=== PATIENT | male | born 1970 | race Two or more races ===

== ENCOUNTER 2021-03-04 19:38 | Inpatient (IN) | payer OTHER ==
[~2021-03-04] VITALS: Ht 165.1 cm; Wt 70.2 kg
[2021-03-04] MEDS ORDERED: ACETAMINOPHEN 325 MG TAB PO ONE (20:00)
[2021-03-04] MEDS ORDERED: SODIUM CHLORIDE 0.9% 1,000 ML IV ONE (20:00)
[2021-03-04 20:28] LABS: Basophils # (auto) 0 10 ^3/uL (0-0.2); Basophils % (auto) 0.5 % (0.0-2.0); Eosinophils # (auto) 0 10 ^3/uL (0-0.8); Eosinophils % (auto) 0.5 % (0.0-7.0); Hematocrit 43.2 % (41.0-53.0); Hemoglobin 14.4 g/dL (13.5-17.5); Lymphocytes # (auto) 0.9 10 ^3/uL (0.4-5.4); Lymphocytes % (auto) 10.4 % (10.0-50.0); Mean Corpuscular Hemoglobin 29.2 pg (28.0-32.0); Mean Corpuscular Hgb Conc. 33.3 g/dL (32.0-36.0); Mean Corpuscular Volume 87.8 fL (80.0-100.0); Monocytes # (auto) 0.5 10 ^3/uL (0-1.3); Monocytes % (auto) 6.6 % (0.0-12.0); Neutrophils # (auto) 6.9 10 ^3/uL (1.6-8.6); Red Blood Cells 4.91 10^6/uL (4.5-5.90); Red Cell Distribution Width 16.5 % (11.8-14.3); White Blood Cell 8.4 10^3/uL (4.4-10.8)
[2021-03-04 20:49] LABS: Albumin 3.1 g/dL (3.4-5.0); Calcium 8.9 mg/dL (8.5-10.1); Potassium 3.7 mmol/L (3.5-5.1)
[2021-03-04 20:53] LABS: BUN/Creatinine Ratio 14.3; Bilirubin, Total 0.2 mg/dL (0.2-1.0); Total Protein 8.3 g/dL (6.4-8.2)
[2021-03-04 20:59] LABS: Urine Bacteria FEW /hpf (None Seen); Urine Blood Negative /uL (Negative); Urine Hyaline Cast FEW /lpf (0 - 2); Urine Specific Gravity 1.015 (1.001-1.035); Urine WBC 13 /hpf (0 - 3)
[2021-03-04] MEDS ORDERED: cefTRIAXone 1GM/50ML D5W 50 ML IV ONE (21:30)
[2021-03-04] MEDS ORDERED: SULF400T11 PO (22:51)
[2021-03-04] MEDS ORDERED: DARU1TAB3 PO (22:51)
[2021-03-05] MEDS ORDERED: ONDANSETRON HCL 4 MG/2 ML VIAL IV PRN (00:15)
[2021-03-05] MEDS ORDERED: DOCUSATE SOD 100 MG CAP PO PRN (00:15)
[2021-03-05] MEDS ORDERED: NITROGLYCERIN 0.4 MG SL TAB SL PRN (00:15)
[2021-03-05] MEDS ORDERED: MORPHINE SULFATE INJECTION 2 MG/ML SYRG IV PRN (00:15)
[2021-03-05] MEDS ORDERED: ACETAMINOPHEN 325 MG TAB PO PRN (00:15)
[2021-03-05 06:18] LABS: Basophils # (auto) 0.1 10 ^3/uL (0-0.2); Basophils % (auto) 0.8 % (0.0-2.0); Eosinophils # (auto) 0 10 ^3/uL (0-0.8); Eosinophils % (auto) 0.3 % (0.0-7.0); Hematocrit 41.7 % (41.0-53.0); Hemoglobin 14.6 g/dL (13.5-17.5); Lymphocytes # (auto) 0.8 10 ^3/uL (0.4-5.4); Mean Corpuscular Hemoglobin 30.1 pg (28.0-32.0); Mean Corpuscular Hgb Conc. 34.9 g/dL (32.0-36.0); Mean Corpuscular Volume 86.2 fL (80.0-100.0); Monocytes # (auto) 0.5 10 ^3/uL (0-1.3); Monocytes % (auto) 6.3 % (0.0-12.0); Neutrophils # (auto) 6.7 10 ^3/uL (1.6-8.6); Neutrophils % (auto) 82.6 % (37.0-80.0); Nucleated Red Blood Cells % 0.2 %; Red Blood Cells 4.84 10^6/uL (4.5-5.90); Red Cell Distribution Width 17.1 % (11.8-14.3); White Blood Cell 8.1 10^3/uL (4.4-10.8)
[2021-03-05 07:11] LABS: Albumin 2.8 g/dL (3.4-5.0)
[2021-03-05 07:13] LABS: BUN/Creatinine Ratio 14.3
[2021-03-05 07:23] LABS: Bilirubin, Total 0.4 mg/dL (0.2-1.0); Total Protein 8.2 g/dL (6.4-8.2)
[2021-03-05] MEDS: SULFAMETH-TRIMETH 80/16MG-ML 10 ML in D5W 5% 250 ML IV SCH ×2 (07:41→15:23)
[2021-03-05] MEDS ORDERED: cefTRIAXone 1GM/50ML D5W 50 ML IV SCH (09:00)
[2021-03-05 09:45] VITALS: BP 115/65
[2021-03-05 13:00] VITALS: BP 110/65
[2021-03-05] MEDS: FAMOTIDINE (10MG/ML) 2ML VL IV SCH (13:00)
[2021-03-05] MEDS: ZINC SULFATE 220mg CAP or TAB PO SCH (13:00)
[2021-03-05] MEDS: MULTIPLE VITAMIN TAB PO SCH (13:01)
[2021-03-05] MEDS: ASCORBIC ACID 500 MG TAB PO SCH ×2 (13:01→23:00)
[2021-03-05] MEDS: ENOXAPARIN SOD 40 MG/0.4 ML SYRINGE SC SCH (13:01)
[2021-03-05] MEDS: [UNRECOGNIZED DRUG - OTHER] PO SCH (13:29)
[2021-03-05] MEDS: DARUNAVIR PO SCH (13:29)
[2021-03-05] MEDS: COBICISTAT PO SCH (13:29)
[2021-03-05] MEDS: EMTRICITABINE PO SCH (13:29)
[2021-03-05] MEDS: HYDROcodone-ACET 5/325MG TAB PO PRN (15:24)
[2021-03-05 17:00] VITALS: BP 108/61
[2021-03-05] MEDS ORDERED: ACYCLOVIR 10MG/KG Q8HR PER RX 0 ML IV SCH (19:45)
[2021-03-05] MEDS ORDERED: VANCOMYCIN PER PHARMACY 0 MG IV SCH (19:45)
[2021-03-05] MEDS ORDERED: VANCOMYCIN 1GM/250ML 250 ML IV ONE (20:15)
[2021-03-05 22:00] VITALS: BP 106/72
[2021-03-05] MEDS ORDERED: D5W 5% IV SCH (22:00)
[2021-03-05] MEDS ORDERED: ACYCLOVIR SOD IV SCH (22:00)
[2021-03-05] MEDS: CEFTRIAXONE SODIUM 2 GM in D5W 5% 50 ML IV SCH (23:00)
[2021-03-05] MEDS: VANCOMYCIN 750mg/250ml 250 ML IV SCH (23:30)
[2021-03-06] MEDS: D5W 5% IV SCH ×3 (00:30→17:26)
[2021-03-06] MEDS: ACYCLOVIR SOD IV SCH ×3 (00:30→17:26)
[2021-03-06 05:00] VITALS: BP 94/57
[2021-03-06 05:35] LABS: Basophils # (auto) 0 10 ^3/uL (0-0.2); Basophils % (auto) 0.8 % (0.0-2.0); Eosinophils # (auto) 0 10 ^3/uL (0-0.8); Eosinophils % (auto) 0.4 % (0.0-7.0); Hematocrit 41.2 % (41.0-53.0); Lymphocytes # (auto) 0.6 10 ^3/uL (0.4-5.4); Lymphocytes % (auto) 11.2 % (10.0-50.0); Mean Corpuscular Hemoglobin 29.5 pg (28.0-32.0); Mean Corpuscular Hgb Conc. 33.9 g/dL (32.0-36.0); Mean Corpuscular Volume 87.1 fL (80.0-100.0); Monocytes # (auto) 0.3 10 ^3/uL (0-1.3); Monocytes % (auto) 5.4 % (0.0-12.0); Neutrophils # (auto) 4.7 10 ^3/uL (1.6-8.6); Neutrophils % (auto) 82.2 % (37.0-80.0); Nucleated Red Blood Cells % 0.3 %; Red Blood Cells 4.73 10^6/uL (4.5-5.90); Red Cell Distribution Width 16.8 % (11.8-14.3); White Blood Cell 5.8 10^3/uL (4.4-10.8)
[2021-03-06 05:59] LABS: Potassium 3.7 mmol/L (3.5-5.1)
[2021-03-06 06:07] LABS: Albumin 2.9 g/dL (3.4-5.0); BUN/Creatinine Ratio 17.6; Bilirubin, Total 0.3 mg/dL (0.2-1.0); Calcium 8.8 mg/dL (8.5-10.1); Total Protein 8.3 g/dL (6.4-8.2)
[2021-03-06] MEDS: VANCOMYCIN 750mg/250ml 250 ML IV SCH ×3 (06:59→23:00)
[2021-03-06 08:00] VITALS: BP 102/63
[2021-03-06 09:00] VITALS: BP 102/63
[2021-03-06] MEDS: COBICISTAT PO SCH (09:30)
[2021-03-06] MEDS: DARUNAVIR PO SCH (09:30)
[2021-03-06] MEDS: EMTRICITABINE PO SCH (09:30)
[2021-03-06] MEDS: [UNRECOGNIZED DRUG - OTHER] PO SCH (09:30)
[2021-03-06] MEDS: MULTIPLE VITAMIN TAB PO SCH (09:32)
[2021-03-06] MEDS: ASCORBIC ACID 500 MG TAB PO SCH ×2 (09:32→21:52)
[2021-03-06] MEDS: FAMOTIDINE (10MG/ML) 2ML VL IV SCH (09:32)
[2021-03-06] MEDS: ZINC SULFATE 220mg CAP or TAB PO SCH (09:32)
[2021-03-06] MEDS: ENOXAPARIN SOD 40 MG/0.4 ML SYRINGE SC SCH (09:33)
[2021-03-06] MEDS ORDERED: GADOTERATE MEG 10 MMOL/20ml INJ (0.5MMOL/ml) IV ONE (09:45)
[2021-03-06] MEDS: CEFTRIAXONE SODIUM 2 GM in D5W 5% 50 ML IV SCH ×2 (11:20→21:00)
[2021-03-06 13:00] VITALS: BP 106/62
[2021-03-06 17:00] VITALS: BP 104/69
[2021-03-06 22:00] VITALS: BP 126/83
[2021-03-07 05:00] VITALS: BP 108/63
[2021-03-07] MEDS: ACYCLOVIR SOD IV SCH ×4 (08:00→16:48)
[2021-03-07] MEDS: D5W 5% IV SCH ×4 (08:00→16:48)
[2021-03-07 08:15] VITALS: BP 119/78
[2021-03-07] MEDS: CEFTRIAXONE SODIUM 2 GM in D5W 5% 50 ML IV SCH ×2 (08:52→21:00)
[2021-03-07 09:00] VITALS: BP 119/78
[2021-03-07 09:04] LABS: Albumin 3.1 g/dL (3.4-5.0); Potassium 4.3 mmol/L (3.5-5.1)
[2021-03-07 09:08] LABS: Basophils # (auto) 0 10 ^3/uL (0-0.2); Basophils % (auto) 0.8 % (0.0-2.0); Eosinophils # (auto) 0.1 10 ^3/uL (0-0.8); Eosinophils % (auto) 1.7 % (0.0-7.0); Hematocrit 43.3 % (41.0-53.0); Hemoglobin 14.6 g/dL (13.5-17.5); Lymphocytes # (auto) 0.7 10 ^3/uL (0.4-5.4); Mean Corpuscular Hemoglobin 29.4 pg (28.0-32.0); Mean Corpuscular Hgb Conc. 33.8 g/dL (32.0-36.0); Mean Corpuscular Volume 86.9 fL (80.0-100.0); Monocytes # (auto) 0.3 10 ^3/uL (0-1.3); Monocytes % (auto) 7.9 % (0.0-12.0); Neutrophils # (auto) 2.8 10 ^3/uL (1.6-8.6); Neutrophils % (auto) 71.6 % (37.0-80.0); Nucleated Red Blood Cells % 0.2 %; Red Blood Cells 4.98 10^6/uL (4.5-5.90); Red Cell Distribution Width 16.8 % (11.8-14.3); White Blood Cell 3.9 10^3/uL (4.4-10.8)
[2021-03-07 09:11] LABS: BUN/Creatinine Ratio 25.2; Bilirubin, Total 0.2 mg/dL (0.2-1.0)
[2021-03-07] MEDS: COBICISTAT PO SCH (10:00)
[2021-03-07] MEDS: EMTRICITABINE PO SCH (10:00)
[2021-03-07] MEDS: FAMOTIDINE (10MG/ML) 2ML VL IV SCH (10:00)
[2021-03-07] MEDS: [UNRECOGNIZED DRUG - OTHER] PO SCH (10:00)
[2021-03-07] MEDS: DARUNAVIR PO SCH (10:00)
[2021-03-07] MEDS: MULTIPLE VITAMIN TAB PO SCH (11:19)
[2021-03-07] MEDS: ENOXAPARIN SOD 40 MG/0.4 ML SYRINGE SC SCH (11:19)
[2021-03-07] MEDS: ZINC SULFATE 220mg CAP or TAB PO SCH (11:19)
[2021-03-07] MEDS: ASCORBIC ACID 500 MG TAB PO SCH ×2 (11:19→21:39)
[2021-03-07 13:00] VITALS: BP 105/74
[2021-03-07] MEDS: VANCOMYCIN 750mg/250ml 250 ML IV SCH ×2 (14:49)
[2021-03-07 17:00] VITALS: BP 111/78
[2021-03-07 22:00] VITALS: BP 129/74
[2021-03-07] MEDS ORDERED: cefTRIAXone 2 GM VL IV ONE (23:05)
[2021-03-08] VITALS (9 sets, daily range): BP systolic 110–146; BP diastolic 71–92
[2021-03-08] MEDS: ACYCLOVIR SOD IV SCH ×3 (00:49→16:33)
[2021-03-08] MEDS: D5W 5% IV SCH ×3 (00:49→16:33)
[2021-03-08] MEDS: VANCOMYCIN 750mg/250ml 250 ML IV SCH ×2 (02:00→14:27)
[2021-03-08] MEDS: EMTRICITABINE PO SCH (10:00)
[2021-03-08] MEDS: COBICISTAT PO SCH (10:00)
[2021-03-08] MEDS: [UNRECOGNIZED DRUG - OTHER] PO SCH (10:00)
[2021-03-08] MEDS: DARUNAVIR PO SCH (10:00)
[2021-03-08] MEDS: FAMOTIDINE (10MG/ML) 2ML VL IV SCH (10:01)
[2021-03-08] MEDS: ZINC SULFATE 220mg CAP or TAB PO SCH (10:01)
[2021-03-08] MEDS: ENOXAPARIN SOD 40 MG/0.4 ML SYRINGE SC SCH (10:02)
[2021-03-08] MEDS: MULTIPLE VITAMIN TAB PO SCH (10:02)
[2021-03-08] MEDS: ASCORBIC ACID 500 MG TAB PO SCH ×2 (10:02→20:48)
[2021-03-08 10:26] LABS: Basophils # (auto) 0 10 ^3/uL (0-0.2); Basophils % (auto) 1.7 % (0.0-2.0); Eosinophils # (auto) 0.1 10 ^3/uL (0-0.8); Eosinophils % (auto) 2.9 % (0.0-7.0); Hematocrit 44.1 % (41.0-53.0); Hemoglobin 14.7 g/dL (13.5-17.5); Lymphocytes # (auto) 0.6 10 ^3/uL (0.4-5.4); Lymphocytes % (auto) 24.4 % (10.0-50.0); Mean Corpuscular Hemoglobin 29.2 pg (28.0-32.0); Mean Corpuscular Hgb Conc. 33.3 g/dL (32.0-36.0); Mean Corpuscular Volume 87.8 fL (80.0-100.0); Monocytes # (auto) 0.3 10 ^3/uL (0-1.3); Monocytes % (auto) 11.3 % (0.0-12.0); Neutrophils # (auto) 1.5 10 ^3/uL (1.6-8.6); Neutrophils % (auto) 59.7 % (37.0-80.0); Nucleated Red Blood Cells % 0.6 %; Red Blood Cells 5.02 10^6/uL (4.5-5.90); Red Cell Distribution Width 16.5 % (11.8-14.3); White Blood Cell 2.5 10^3/uL (4.4-10.8)
[2021-03-08 10:40] LABS: INR 0.94 (0.9-1.15); Partial Thromboplastin Time 25.7 sec (23.6-33.0)
[2021-03-08 10:46] LABS: Albumin 2.9 g/dL (3.4-5.0); Anion Gap 5 (5-15); Blood Urea Nitrogen 21 mg/dL (7-18); Calcium 8.9 mg/dL (8.5-10.1); Carbon Dioxide 26 mmol/L (21-32); Chloride 105 mmol/L (98-107); Glucose 120 mg/dL (74-106); Magnesium 2.4 mg/dL (1.6-2.6); Potassium 4.3 mmol/L (3.5-5.1); Sodium 136 mmol/L (136-145)
[2021-03-08 10:50] LABS: Alanine Aminotransferase 28 U/L (16-61); Alkaline Phosphatase 82 U/L (45-117); Aspartate Aminotransferase 28 U/L (15-37); BUN/Creatinine Ratio 23.9; Bilirubin, Total 0.2 mg/dL (0.2-1.0); GFR African American 117 mL/min; GFR Non-African American 97 mL/min; Phosphorus 2.6 mg/dL (2.5-4.90); Total Protein 8.5 g/dL (6.4-8.2)
[2021-03-08] MEDS ORDERED: LORazepam 2MG/ML-1ML VIAL IV ONE (11:00)
[2021-03-08] MEDS ORDERED: fentaNYL CITRATE 100 MCG/2 ML VL IV ONE (11:30)
[2021-03-08] MEDS ORDERED: MIDAZOLAM HCL 2MG/2ML 2ml VIAL (1mg/ml) IV ONE (11:30)
[2021-03-08] MEDS: CEFTRIAXONE SODIUM 2 GM in D5W 5% 50 ML IV SCH ×2 (12:10→20:46)
[2021-03-08 12:12] LABS: Hepatitis A Ab IgM Negative; Hepatitis B Surface Antibody Negative; Hepatitis B Surface Antigen Negative (Negative); Hepatitis C Antibody Negative (Negative)
[2021-03-08] MEDS ORDERED: LIDOCAINE 2%HCL (LOCAL ANESTH.) INJ 20ML MDV ONE (12:14)
[2021-03-08] MEDS ORDERED: diphenhdrAMINE HCL 50 MG/1 ML VL ONE (12:59)
[2021-03-08 13:51] LABS: Urine WBC None Seen /hpf (0 - 3)
[2021-03-08 14:01] LABS: Protein, CSF 59.4 mg/dL (15-45)
[2021-03-08 14:15] LABS: CSF White Blood Cells 1 CUMM (0-5)
[2021-03-08 14:40] LABS: Hepatitis B Core Total AB Positive
[2021-03-08 14:59] LABS: Urine Bacteria NONE SEEN /hpf (None Seen); Urine Blood Negative /uL (Negative); Urine Specific Gravity 1.012 (1.001-1.035); Urine Sperm PRESENT /hpf (None Seen)
[2021-03-09] MEDS: ACYCLOVIR SOD IV SCH ×4 (00:07→23:40)
[2021-03-09] MEDS: D5W 5% IV SCH ×4 (00:07→23:40)
[2021-03-09] MEDS: VANCOMYCIN 750mg/250ml 250 ML IV SCH (02:00)
[2021-03-09 05:00] VITALS: BP 91/61
[2021-03-09 05:46] LABS: Basophils # (auto) 0.1 10 ^3/uL (0-0.2); Basophils % (auto) 1.6 % (0.0-2.0); Eosinophils # (auto) 0.1 10 ^3/uL (0-0.8); Eosinophils % (auto) 2.9 % (0.0-7.0); Hematocrit 46.9 % (41.0-53.0); Hemoglobin 15.9 g/dL (13.5-17.5); Lymphocytes # (auto) 0.9 10 ^3/uL (0.4-5.4); Lymphocytes % (auto) 24.9 % (10.0-50.0); Mean Corpuscular Hemoglobin 30.1 pg (28.0-32.0); Mean Corpuscular Hgb Conc. 33.9 g/dL (32.0-36.0); Mean Corpuscular Volume 88.9 fL (80.0-100.0); Monocytes # (auto) 0.5 10 ^3/uL (0-1.3); Monocytes % (auto) 13.5 % (0.0-12.0); Neutrophils % (auto) 57.1 % (37.0-80.0); Nucleated Red Blood Cells % 0.7 %; Red Blood Cells 5.28 10^6/uL (4.5-5.90); Red Cell Distribution Width 16.2 % (11.8-14.3); White Blood Cell 3.4 10^3/uL (4.4-10.8)
[2021-03-09 06:04] LABS: INR 0.93 (0.9-1.15); Partial Thromboplastin Time 25.2 sec (23.6-33.0)
[2021-03-09 06:06] LABS: RPR Non Reactive (Non Reactive)
[2021-03-09 06:12] LABS: Potassium 4.2 mmol/L (3.5-5.1)
[2021-03-09 06:25] LABS: BUN/Creatinine Ratio 31.8; Bilirubin, Total 0.2 mg/dL (0.2-1.0); Calcium 8.9 mg/dL (8.5-10.1); Magnesium 2.6 mg/dL (1.6-2.6); Phosphorus 3.9 mg/dL (2.5-4.90); Total Protein 8.6 g/dL (6.4-8.2)
[2021-03-09 08:00] VITALS: BP 91/61
[2021-03-09 09:00] VITALS: BP 107/80
[2021-03-09] MEDS: [UNRECOGNIZED DRUG - OTHER] PO SCH (10:00)
[2021-03-09] MEDS: EMTRICITABINE PO SCH (10:00)
[2021-03-09] MEDS: COBICISTAT PO SCH (10:00)
[2021-03-09] MEDS: DARUNAVIR PO SCH (10:00)
[2021-03-09] MEDS: ENOXAPARIN SOD 40 MG/0.4 ML SYRINGE SC SCH (10:00)
[2021-03-09] MEDS: ZINC SULFATE 220mg CAP or TAB PO SCH (10:40)
[2021-03-09] MEDS: FAMOTIDINE (10MG/ML) 2ML VL IV SCH (10:40)
[2021-03-09] MEDS: MULTIPLE VITAMIN TAB PO SCH (10:41)
[2021-03-09] MEDS: ASCORBIC ACID 500 MG TAB PO SCH ×2 (10:41→21:17)
[2021-03-09] MEDS: CEFTRIAXONE SODIUM 2 GM in D5W 5% 50 ML IV SCH (11:45)
[2021-03-09 13:00] VITALS: BP 99/68
[2021-03-09] MEDS ORDERED: VANCOMYCIN 1GM/250ML 250 ML IV SCH (14:00)
[2021-03-09 17:00] VITALS: BP 136/83
[2021-03-09] MEDS: HYDROcodone-ACET 5/325MG TAB PO PRN ×2 (21:26→21:27)
[2021-03-09 22:00] VITALS: BP 123/79
[2021-03-10 05:00] VITALS: BP 107/70
[2021-03-10] MEDS: [UNRECOGNIZED DRUG - OTHER] PO SCH (08:42)
[2021-03-10] MEDS: MULTIPLE VITAMIN TAB PO SCH (08:42)
[2021-03-10] MEDS: D5W 5% IV SCH (08:42)
[2021-03-10] MEDS: EMTRICITABINE PO SCH (08:42)
[2021-03-10] MEDS: ZINC SULFATE 220mg CAP or TAB PO SCH (08:42)
[2021-03-10] MEDS: ACYCLOVIR SOD IV SCH (08:42)
[2021-03-10] MEDS: DARUNAVIR PO SCH (08:42)
[2021-03-10] MEDS: COBICISTAT PO SCH (08:42)
[2021-03-10] MEDS: ENOXAPARIN SOD 40 MG/0.4 ML SYRINGE SC SCH (08:42)
[2021-03-10] MEDS: FAMOTIDINE (10MG/ML) 2ML VL IV SCH (08:42)
[2021-03-10] MEDS: ASCORBIC ACID 500 MG TAB PO SCH ×2 (08:42→21:55)
[2021-03-10 09:00] VITALS: BP 112/73
[2021-03-10 13:00] VITALS: BP 111/61
[2021-03-10 17:00] VITALS: BP 131/95
[2021-03-10 22:00] VITALS: BP 129/65
[2021-03-11 05:00] VITALS: BP 124/70
[2021-03-11 09:00] VITALS: BP 117/66
[2021-03-11] MEDS: COBICISTAT PO SCH (09:23)
[2021-03-11] MEDS: ZINC SULFATE 220mg CAP or TAB PO SCH (09:23)
[2021-03-11] MEDS: FAMOTIDINE (10MG/ML) 2ML VL IV SCH (09:23)
[2021-03-11] MEDS: [UNRECOGNIZED DRUG - OTHER] PO SCH (09:23)
[2021-03-11] MEDS: EMTRICITABINE PO SCH (09:23)
[2021-03-11] MEDS: DARUNAVIR PO SCH (09:23)
[2021-03-11] MEDS: MULTIPLE VITAMIN TAB PO SCH (09:24)
[2021-03-11] MEDS: ENOXAPARIN SOD 40 MG/0.4 ML SYRINGE SC SCH (09:24)
[2021-03-11] MEDS: ASCORBIC ACID 500 MG TAB PO SCH (09:24)
== END 2021-03-11 12:48 | disposition home or self-care (01) | DRG 463 ==
LOC: EDBD 19:38 → ER 19:39 → OVERFLOW 03-05 00:04 → WEST WING 03-05 10:15
PROVIDERS: ADMIT Nurse Practitioner Family; ATTEND Internal Medicine
PROC: 009U3ZX Drainage of Spinal Canal, Percutaneous Approach, Diagnostic (ICD-10-PCS; principal; 2021-03-08)
PROC: B01BZZZ Fluoroscopy of Spinal Cord (ICD-10-PCS; 2021-03-08)
DX: N30.00 Acute cystitis without hematuria (principal); B20 Human immunodeficiency virus [HIV] disease; C80.1 Malignant (primary) neoplasm, unspecified; J44.9 Chronic obstructive pulmonary disease, unspecified; H54.8 Legal blindness, as defined in USA; F15.90 Other stimulant use, unspecified, uncomplicated; F17.210 Nicotine dependence, cigarettes, uncomplicated; H10.9 Unspecified conjunctivitis; Z20.822 Contact with and (suspected) exposure to COVID-19; Z80.9 Family history of malignant neoplasm, unspecified; Z83.3 Family history of diabetes mellitus; Z72.89 Other problems related to lifestyle; Z91.19 Patient's noncompliance with other medical treatment and regimen
CPT/HCPCS: 36415; 62272; 70553; 71045; 80053; 80202; 81001; 82565; 82945; 83735; 83880; 84100; 84157; 84443; 84484; 85025; 85610; 85730; 86592; 86704; 86706; 86709; 86777; 86778; 86803; 87040; 87070; 87086; 87205; 87340; 87426; 87529; 87536; 87899; 88108; 89051; 93005; 93306; 96365; 96375; 97163; G0378; J0696; J2250; J3490; J7060

== ENCOUNTER → 2021-09-15 | Outpatient (CLI) | payer MEDICAID ==
[~2021-09-15] MED LIST: ALBUTEROL SULF 2.5 MG/0.5ML(0.5%) NEB SOLN ONE; DARU1TAB3 PO; SULF400T11 PO
== END | disposition home or self-care (01) ==
LOC: RT 08:19
PROVIDERS: ATTEND Internal Medicine Pulmonary Disease
DX: J44.9 Chronic obstructive pulmonary disease, unspecified (principal); F17.200 Nicotine dependence, unspecified, uncomplicated
CPT/HCPCS: 94060; 94640

== ENCOUNTER → 2022-04-12 | Outpatient (CLI) | payer MEDICAID ==
[~2022-04-12] MED LIST changes: -ALBUTEROL SULF 2.5 MG/0.5ML(0.5%) NEB SOLN ONE; +CIPR500T4 PO
[2022-04-12 13:24] LABS: Basophils # (auto) 0 10 ^3/uL (0-0.2); Basophils % (auto) 0.6 % (0.0-2.0); Eosinophils # (auto) 0.2 10 ^3/uL (0-0.8); Eosinophils % (auto) 2.1 % (0.0-7.0); Hematocrit 42.5 % (41.0-53.0); Hemoglobin 14.3 g/dL (13.5-17.5); Lymphocytes # (auto) 0.8 10 ^3/uL (0.4-5.4); Lymphocytes % (auto) 10.6 % (10.0-50.0); Mean Corpuscular Hgb Conc. 33.7 g/dL (32.0-36.0); Mean Corpuscular Volume 86.2 fL (80.0-100.0); Monocytes # (auto) 0.6 10 ^3/uL (0-1.3); Monocytes % (auto) 8.1 % (0.0-12.0); Neutrophils # (auto) 5.6 10 ^3/uL (1.6-8.6); Neutrophils % (auto) 78.6 % (37.0-80.0); Nucleated Red Blood Cells % 0.5 %; Red Blood Cells 4.92 10^6/uL (4.5-5.90); Red Cell Distribution Width 14.1 % (11.8-14.3); White Blood Cell 7.1 10^3/uL (4.4-10.8)
[2022-04-12 14:07] LABS: Prostate Specific Antigen 0.54 ng/mL (0.0-4.0)
[2022-04-12 14:12] LABS: Urine Bacteria FEW /hpf (None Seen); Urine Blood Negative /uL (Negative); Urine Specific Gravity 1.009 (1.001-1.035); Urine WBC 8 /hpf (0 - 3)
[2022-04-12 14:40] LABS: Alanine Aminotransferase 22 U/L (16-61); Alkaline Phosphatase 83 U/L (45-117); Anion Gap 6 (5-15); Aspartate Aminotransferase 31 U/L (15-37); BUN/Creatinine Ratio 15.4; Bilirubin, Total 0.5 mg/dL (0.2-1.0); Blood Urea Nitrogen 10 mg/dL (7-18); Calcium 8.9 mg/dL (8.5-10.1); Carbon Dioxide 26 mmol/L (21-32); Chloride 105 mmol/L (98-107); GFR African American 165 mL/min; GFR Non-African American 137 mL/min; Glucose 87 mg/dL (74-106); Sodium 137 mmol/L (136-145); Total Protein 8.9 g/dL (6.4-8.2)
[2022-04-12 14:41] LABS: Albumin 2.9 g/dL (3.4-5.0); Cholesterol 132 mg/dL (< 200); HDL Cholesterol 35 mg/dL (40-59); LDL Cholesterol 94 mg/dL (< 100); Triglycerides 159 mg/dL (< 150)
== END | disposition home or self-care (01) ==
LOC: LAB 11:38
DX: Z21 Asymptomatic human immunodeficiency virus [HIV] infection status (principal); E78.2 Mixed hyperlipidemia; R91.1 Solitary pulmonary nodule; C44.321 Squamous cell carcinoma of skin of nose; F15.91 Other stimulant use, unspecified, in remission; Z86.19 Personal history of other infectious and parasitic diseases
CPT/HCPCS: 36415; 80053; 80061; 81001; 82306; 82607; 83036; 84153; 84443; 86360; 86606; 86701; 86703; 86803

== ENCOUNTER 2023-01-24 18:39 | Inpatient (IN) | payer MEDICAID ==
[~2023-01-24] VITALS: Ht 167.6 cm; Wt 124.3 kg
[2023-01-24 19:41] LABS: Basophils # (auto) 0 10 ^3/uL (0-0.2); Eosinophils # (auto) 0.1 10 ^3/uL (0-0.8); Eosinophils % (auto) 1.9 % (0.0-7.0); Hematocrit 35.6 % (41.0-53.0); Hemoglobin 11.9 g/dL (13.5-17.5); Lymphocytes # (auto) 0.5 10 ^3/uL (0.4-5.4); Lymphocytes % (auto) 14.5 % (10.0-50.0); Mean Corpuscular Hemoglobin 27.1 pg (28.0-32.0); Mean Corpuscular Hgb Conc. 33.4 g/dL (32.0-36.0); Mean Corpuscular Volume 81.3 fL (80.0-100.0); Monocytes # (auto) 0.2 10 ^3/uL (0-1.3); Monocytes % (auto) 6.6 % (0.0-12.0); Neutrophils # (auto) 2.5 10 ^3/uL (1.6-8.6); Nucleated Red Blood Cells % 0.1 %; Red Blood Cells 4.38 10^6/uL (4.5-5.90); Red Cell Distribution Width 16.1 % (11.8-14.3); White Blood Cell 3.2 10^3/uL (4.4-10.8)
[2023-01-24 20:01] LABS: Alanine Aminotransferase 31 U/L (7-40); Albumin 2.8 g/dL (3.2-4.8); Alkaline Phosphatase 76 U/L (46-116); Anion Gap 5.9 (5-15); Aspartate Aminotransferase 81 U/L (13-40); BUN/Creatinine Ratio 18.4 (10.0-20.0); Bilirubin, Total 0.5 mg/dL (0.2-1.0); Blood Urea Nitrogen 14 mg/dL (9-23); Calcium 8.3 mg/dL (8.7-10.4); Carbon Dioxide 25.1 mmol/L (20-30); Chloride 101 mmol/L (98-107); Glucose 95 mg/dL (74-106); Potassium 4.1 mmol/L (3.5-5.1); Sodium 132 mmol/L (136-145); Total Protein 6.7 g/dL (5.7-8.2)
[2023-01-24] MEDS ORDERED: cefTRIAXone 1GM/50ML D5W 50 ML IV ONE (20:45)
[2023-01-24] MEDS ORDERED: AZITHROMYCIN 250 MG TAB PO ONE (20:45)
[2023-01-24] MEDS ORDERED: SULFAMETH-TRIMETH 80/16MG-ML 15 ML in D5W 5% 500 ML IV ONE (21:00)
[2023-01-24] MEDS ORDERED: TEMAZEPAM 15 MG CAP PO PRN (22:45)
[2023-01-24] MEDS ORDERED: ALBUTEROL SULF 2.5 MG/0.5ML(0.5%) NEB SOLN NEB PRN (22:45)
[2023-01-24] MEDS ORDERED: ONDANSETRON HCL 4 MG/2 ML VIAL IV PRN (22:45)
[2023-01-24 22:50] VITALS: BP 106/69; PULSE 93; RESP 24; TEMP 98.8; O2SAT 93
[2023-01-24 23:30] VITALS: O2SAT 98
[2023-01-24] MEDS ORDERED: SULFAMETH-TRIMETH 800-160mg/10ml (80-16MG/ML) 10 ML VIAL IV ONE (23:54)
[2023-01-25] MEDS ORDERED: SULFAMETH-TRIMETH 800-160mg/10ml (80-16MG/ML) 10 ML VIAL IV ONE (00:02)
[2023-01-25] MEDS: ACETAMINOPHEN 325 MG TAB PO PRN (00:15)
[2023-01-25 01:19] LABS: Rapid Influenza A Negative (Negative); Rapid Influenza B Negative (Negative)
[2023-01-25 01:20] LABS: COVID19 ANTIGEN SOFIA FIA NEGATIVE (NEGATIVE)
[2023-01-25 05:11] LABS: Urine Bacteria NONE SEEN /hpf (None Seen); Urine Blood Negative /uL (Negative); Urine Clarity Clear (Clear); Urine Color Yellow (Yellow); Urine Protein, UAD TRACE (Negative); Urine Specific Gravity 1.012 (1.001-1.035); Urine WBC 2 /hpf (0 - 3); Urine pH 6.5 (5.0-8.0)
[2023-01-25] MEDS ORDERED: SULFAMETH-TRIMETH 80/16MG-ML 15 ML in D5W 5% 500 ML IV ONE (06:00)
[2023-01-25] MEDS ORDERED: BACTRIM 5MG/KG Q8HR PER RX 0 ML IV SCH (06:00)
[2023-01-25 06:47] VITALS: O2SAT 95
[2023-01-25] MEDS: NYSTATIN (MOUTH-THROAT) 500,000 UNITS/5 ML SUSP MT SCH ×4 (06:50→22:35)
[2023-01-25 07:35] VITALS: O2SAT 93
[2023-01-25] MEDS: SULFAMETH TRIMETH IV SCH ×2 (09:02→16:28)
[2023-01-25] MEDS: D5W 5% IV SCH ×2 (09:02→16:28)
[2023-01-25] MEDS: cefTRIAXone 1GM/50ML D5W 50 ML IV SCH (09:02)
[2023-01-25] MEDS: predniSONE 20 MG TAB PO SCH ×2 (11:24→22:35)
[2023-01-25] MEDS: ENOXAPARIN SOD 40 MG/0.4 ML SYRINGE SC SCH (11:24)
[2023-01-25] MEDS: PANTOPRAZOLE 40 MG TAB PO SCH (11:24)
[2023-01-25] MEDS: GABAPENTIN 300 MG CAP PO SCH ×2 (11:24→22:00)
[2023-01-25 12:44] LABS: Basophils # (auto) 0 10 ^3/uL (0-0.2); Basophils % (auto) 0.8 % (0.0-2.0); Eosinophils # (auto) 0.1 10 ^3/uL (0-0.8); Eosinophils % (auto) 2.1 % (0.0-7.0); Hematocrit 38.3 % (41.0-53.0); Hemoglobin 12.6 g/dL (13.5-17.5); Lymphocytes # (auto) 0.3 10 ^3/uL (0.4-5.4); Lymphocytes % (auto) 7.4 % (10.0-50.0); Mean Corpuscular Hemoglobin 27.1 pg (28.0-32.0); Mean Corpuscular Hgb Conc. 32.8 g/dL (32.0-36.0); Mean Corpuscular Volume 82.4 fL (80.0-100.0); Monocytes # (auto) 0.2 10 ^3/uL (0-1.3); Monocytes % (auto) 6.1 % (0.0-12.0); Neutrophils # (auto) 3.2 10 ^3/uL (1.6-8.6); Neutrophils % (auto) 83.6 % (37.0-80.0); Nucleated Red Blood Cells % 0.1 %; Red Blood Cells 4.65 10^6/uL (4.5-5.90); White Blood Cell 3.8 10^3/uL (4.4-10.8)
[2023-01-25 13:13] LABS: Alanine Aminotransferase 25 U/L (7-40); Albumin 3.1 g/dL (3.2-4.8); Alkaline Phosphatase 76 U/L (46-116); Anion Gap 7.6 (5-15); Aspartate Aminotransferase 71 U/L (13-40); BUN/Creatinine Ratio 11.4 (10.0-20.0); Bilirubin, Total 0.2 mg/dL (0.2-1.0); Blood Urea Nitrogen 9 mg/dL (9-23); Calcium 8.7 mg/dL (8.5-10.1); Carbon Dioxide 24.4 mmol/L (20-30); Chloride 101 mmol/L (98-107); Glucose 74 mg/dL (74-106); Potassium 3.5 mmol/L (3.5-5.1); Sodium 133 mmol/L (136-145); Total Protein 7.4 g/dL (5.7-8.2)
[2023-01-25 14:50] VITALS: O2SAT 94
[2023-01-25 19:25] VITALS: O2SAT 94
[2023-01-25] MEDS: ATORVASTATIN 20 MG TAB PO SCH (22:00)
[2023-01-26] VITALS (7 sets, daily range): BP systolic 100–117; BP diastolic 54–80; PULSE 74–97; RESP 15–19; TEMP 97.5–98.4; O2SAT 90–100
[2023-01-26] MEDS: D5W 5% IV SCH ×3 (00:17→16:36)
[2023-01-26] MEDS: SULFAMETH TRIMETH IV SCH ×3 (00:17→16:36)
[2023-01-26] MEDS: NYSTATIN (MOUTH-THROAT) 500,000 UNITS/5 ML SUSP MT SCH ×4 (06:22→21:38)
[2023-01-26] MEDS: GABAPENTIN 300 MG CAP PO SCH ×2 (09:29→21:39)
[2023-01-26] MEDS: PANTOPRAZOLE 40 MG TAB PO SCH (09:30)
[2023-01-26] MEDS: ENOXAPARIN SOD 40 MG/0.4 ML SYRINGE SC SCH (09:30)
[2023-01-26] MEDS: predniSONE 20 MG TAB PO SCH ×2 (09:30→21:38)
[2023-01-26] MEDS: cefTRIAXone 1GM/50ML D5W 50 ML IV SCH (13:07)
[2023-01-26] MEDS: ATORVASTATIN 20 MG TAB PO SCH (21:39)
[2023-01-27] VITALS (11 sets, daily range): BP systolic 91–105; BP diastolic 62–67; PULSE 74–117; RESP 15–24; TEMP 97.5–98.7; O2SAT 90–98
[2023-01-27] MEDS: SULFAMETH TRIMETH IV SCH ×4 (00:35→23:55)
[2023-01-27] MEDS: D5W 5% IV SCH ×4 (00:35→23:55)
[2023-01-27] MEDS: NYSTATIN (MOUTH-THROAT) 500,000 UNITS/5 ML SUSP MT SCH ×4 (06:00→21:50)
[2023-01-27] MEDS: PANTOPRAZOLE 40 MG TAB PO SCH (10:00)
[2023-01-27] MEDS: predniSONE 20 MG TAB PO SCH ×2 (10:00→21:50)
[2023-01-27] MEDS: GABAPENTIN 300 MG CAP PO SCH ×2 (10:00→22:00)
[2023-01-27] MEDS ORDERED: LIDOCAINE 2%HCL (LOCAL ANESTH.) INJ 20ML MDV ONE (10:19)
[2023-01-27] MEDS ORDERED: GLYCOPYRROLATE 0.2 MG/ML 1ML VIAL ONE ×2 (10:20→11:43)
[2023-01-27] MEDS ORDERED: EPINEPHrine HCL 1 MG/1 ML AMP ONE (10:20)
[2023-01-27] MEDS: LIDOCAINE 2% JELLY 11ml (GLYDO) ONE ×2 (10:21→11:59)
[2023-01-27] MEDS ORDERED: fentaNYL CITRATE 100 MCG/2 ML VL ONE (11:38)
[2023-01-27] MEDS ORDERED: MIDAZOLAM HCL 2MG/2ML 2ml VIAL (1mg/ml) ONE (11:38)
[2023-01-27] MEDS ORDERED: ONDANSETRON HCL 4 MG/2 ML VIAL ONE (11:43)
[2023-01-27] MEDS ORDERED: PROPOFOL 10 MG/ML 20 ML IV ONE (11:43)
[2023-01-27] MEDS ORDERED: LIDOCAINE 2% (LOCAL ANESTH.) PF 5ml SDV ONE (11:43)
[2023-01-27] MEDS ORDERED: IPRATROPIUM BROM 0.5 MG/2.5ML INH SOL NEB ONE (12:45)
[2023-01-27] MEDS ORDERED: HYDROmorphone HCL 2 MG/ML VL/or syr IV PRN (12:45)
[2023-01-27] MEDS ORDERED: ALBUTEROL SULF 2.5 MG/0.5ML(0.5%) NEB SOLN NEB ONE (12:45)
[2023-01-27] MEDS: cefTRIAXone 1GM/50ML D5W 50 ML IV SCH (15:48)
[2023-01-27] MEDS: ATORVASTATIN 20 MG TAB PO SCH (21:49)
[2023-01-27] MEDS: ACETAMINOPHEN 325 MG TAB PO PRN (21:50)
[2023-01-27 23:24] LABS: Basophils # (auto) 0 10 ^3/uL (0-0.2); Basophils % (auto) 0.2 % (0.0-2.0); Eosinophils # (auto) 0 10 ^3/uL (0-0.8); Eosinophils % (auto) 0.3 % (0.0-7.0); Hematocrit 34.7 % (41.0-53.0); Hemoglobin 11.4 g/dL (13.5-17.5); Lymphocytes # (auto) 0.3 10 ^3/uL (0.4-5.4); Lymphocytes % (auto) 5.5 % (10.0-50.0); Mean Corpuscular Hemoglobin 27.5 pg (28.0-32.0); Mean Corpuscular Hgb Conc. 32.8 g/dL (32.0-36.0); Mean Corpuscular Volume 83.6 fL (80.0-100.0); Monocytes # (auto) 0.2 10 ^3/uL (0-1.3); Monocytes % (auto) 4.2 % (0.0-12.0); Neutrophils # (auto) 4.7 10 ^3/uL (1.6-8.6); Neutrophils % (auto) 89.8 % (37.0-80.0); Nucleated Red Blood Cells % 0.1 %; Red Blood Cells 4.15 10^6/uL (4.5-5.90); Red Cell Distribution Width 16.6 % (11.8-14.3); White Blood Cell 5.2 10^3/uL (4.4-10.8)
[2023-01-28] VITALS (7 sets, daily range): BP systolic 86–111; BP diastolic 51–77; PULSE 64–81; RESP 16–19; TEMP 97.4–98.7; O2SAT 91–98
[2023-01-28] MEDS: NYSTATIN (MOUTH-THROAT) 500,000 UNITS/5 ML SUSP MT SCH ×4 (05:49→21:37)
[2023-01-28] MEDS: SULFAMETH TRIMETH IV SCH ×2 (07:42→16:14)
[2023-01-28] MEDS: D5W 5% IV SCH ×2 (07:42→16:14)
[2023-01-28] MEDS: cefTRIAXone 1GM/50ML D5W 50 ML IV SCH (09:04)
[2023-01-28] MEDS: predniSONE 20 MG TAB PO SCH ×2 (09:06→21:37)
[2023-01-28] MEDS: GABAPENTIN 300 MG CAP PO SCH ×2 (09:06→21:37)
[2023-01-28] MEDS: PANTOPRAZOLE 40 MG TAB PO SCH (09:07)
[2023-01-28] MEDS: ATORVASTATIN 20 MG TAB PO SCH (21:37)
[2023-01-29] VITALS (7 sets, daily range): BP systolic 113–117; BP diastolic 71–75; PULSE 68–102; RESP 17–19; TEMP 97.7–98.6; O2SAT 95–99
[2023-01-29] MEDS: SULFAMETH TRIMETH IV SCH ×3 (00:32→16:16)
[2023-01-29] MEDS: D5W 5% IV SCH ×3 (00:32→16:16)
[2023-01-29] MEDS: NYSTATIN (MOUTH-THROAT) 500,000 UNITS/5 ML SUSP MT SCH ×4 (06:34→21:47)
[2023-01-29] MEDS: GABAPENTIN 300 MG CAP PO SCH (10:00)
[2023-01-29] MEDS: predniSONE 20 MG TAB PO SCH ×2 (11:07→21:47)
[2023-01-29] MEDS: PANTOPRAZOLE 40 MG TAB PO SCH (11:07)
[2023-01-29] MEDS: cefTRIAXone 1GM/50ML D5W 50 ML IV SCH (11:08)
[2023-01-29] MEDS: HYDROcodone-ACET 5/325MG TAB PO PRN (11:33)
[2023-01-29 13:39] LABS: Basophils # (auto) 0 10 ^3/uL (0-0.2); Basophils % (auto) 0.4 % (0.0-2.0); Eosinophils # (auto) 0 10 ^3/uL (0-0.8); Hematocrit 39.3 % (41.0-53.0); Hemoglobin 13.1 g/dL (13.5-17.5); Lymphocytes # (auto) 0.5 10 ^3/uL (0.4-5.4); Lymphocytes % (auto) 5.9 % (10.0-50.0); Mean Corpuscular Hemoglobin 27.5 pg (28.0-32.0); Mean Corpuscular Hgb Conc. 33.3 g/dL (32.0-36.0); Mean Corpuscular Volume 82.6 fL (80.0-100.0); Monocytes # (auto) 0.3 10 ^3/uL (0-1.3); Monocytes % (auto) 3.6 % (0.0-12.0); Neutrophils # (auto) 8.3 10 ^3/uL (1.6-8.6); Neutrophils % (auto) 90.1 % (37.0-80.0); Nucleated Red Blood Cells % 0.1 %; Red Blood Cells 4.76 10^6/uL (4.5-5.90); Red Cell Distribution Width 16.2 % (11.8-14.3); White Blood Cell 9.2 10^3/uL (4.4-10.8)
[2023-01-29 13:59] LABS: Alanine Aminotransferase 24 U/L (7-40); Albumin 3.2 g/dL (3.2-4.8); Alkaline Phosphatase 81 U/L (46-116); Anion Gap 7.9 (5-15); Aspartate Aminotransferase 34 U/L (13-40); Bilirubin, Total < 0.2 mg/dL (0.2-1.0); Blood Urea Nitrogen 12 mg/dL (9-23); Carbon Dioxide 23.1 mmol/L (20-30); Chloride 97 mmol/L (98-107); Potassium 4.8 mmol/L (3.5-5.1); Total Protein 7.5 g/dL (5.7-8.2)
[2023-01-29 14:16] LABS: Glucose 207 mg/dL (74-106); Sodium 128 mmol/L (136-145)
[2023-01-29] MEDS ORDERED: diphenhdrAMINE HCL 50 MG/1 ML VL IV ONE (18:30)
[2023-01-29] MEDS ORDERED: FAMOTIDINE (10MG/ML) 2ML VL IV ONE (18:30)
[2023-01-29] MEDS: ATORVASTATIN 20 MG TAB PO SCH (21:47)
[2023-01-30] VITALS (7 sets, daily range): BP systolic 121–129; BP diastolic 72–78; PULSE 74–89; RESP 18; TEMP 97.4–97.8; O2SAT 92–97
[2023-01-30] MEDS: NYSTATIN (MOUTH-THROAT) 500,000 UNITS/5 ML SUSP MT SCH ×3 (06:23→17:40)
[2023-01-30] MEDS: cefTRIAXone 1GM/50ML D5W 50 ML IV SCH (09:53)
[2023-01-30] MEDS: PANTOPRAZOLE 40 MG TAB PO SCH (09:53)
[2023-01-30] MEDS: HYDROcodone-ACET 5/325MG TAB PO PRN (09:53)
[2023-01-30] MEDS: predniSONE 20 MG TAB PO SCH (09:53)
[2023-01-30] MEDS: SULFAMETH TRIMETH IV SCH ×4 (10:50→16:00)
[2023-01-30] MEDS: D5W 5% IV SCH ×4 (10:50→16:00)
[2023-01-30 11:18] LABS: Basophils # (auto) 0 10 ^3/uL (0-0.2); Basophils % (auto) 0.3 % (0.0-2.0); Eosinophils # (auto) 0 10 ^3/uL (0-0.8); Hematocrit 41.5 % (41.0-53.0); Hemoglobin 13.8 g/dL (13.5-17.5); Lymphocytes # (auto) 0.5 10 ^3/uL (0.4-5.4); Mean Corpuscular Hemoglobin 27.6 pg (28.0-32.0); Mean Corpuscular Hgb Conc. 33.3 g/dL (32.0-36.0); Mean Corpuscular Volume 82.8 fL (80.0-100.0); Monocytes # (auto) 0.2 10 ^3/uL (0-1.3); Monocytes % (auto) 2.1 % (0.0-12.0); Neutrophils # (auto) 7.3 10 ^3/uL (1.6-8.6); Neutrophils % (auto) 91.6 % (37.0-80.0); Nucleated Red Blood Cells % 0.2 %; Red Blood Cells 5.01 10^6/uL (4.5-5.90); Red Cell Distribution Width 16.5 % (11.8-14.3)
[2023-01-30 11:19] LABS: Chloride 96 mmol/L (98-107); Potassium 4.7 mmol/L (3.5-5.1); Sodium 130 mmol/L (136-145)
[2023-01-30 11:20] LABS: Anion Gap 6.9 (5-15); Calcium 9.2 mg/dL (8.5-10.1); Carbon Dioxide 27.1 mmol/L (20-30)
[2023-01-30 11:25] LABS: BUN/Creatinine Ratio 16.5 (10.0-20.0); Blood Urea Nitrogen 17 mg/dL (9-23); Glucose 237 mg/dL (74-106)
[2023-01-30] MEDS: SYMTUZA PO SCH (13:58)
[2023-01-31] VITALS (7 sets, daily range): BP systolic 116–131; BP diastolic 75–80; PULSE 78–90; RESP 17–19; TEMP 97.7–98; O2SAT 91–97
[2023-01-31] MEDS: NYSTATIN (MOUTH-THROAT) 500,000 UNITS/5 ML SUSP MT SCH ×4 (00:47→18:00)
[2023-01-31] MEDS: ATORVASTATIN 20 MG TAB PO SCH (00:47)
[2023-01-31] MEDS: SULFAMETH TRIMETH IV SCH ×3 (00:48→16:14)
[2023-01-31] MEDS: D5W 5% IV SCH ×3 (00:48→16:14)
[2023-01-31] MEDS: HYDROcodone-ACET 5/325MG TAB PO PRN (08:26)
[2023-01-31] MEDS: cefTRIAXone 1GM/50ML D5W 50 ML IV SCH (09:33)
[2023-01-31] MEDS: PANTOPRAZOLE 40 MG TAB PO SCH (09:33)
[2023-01-31] MEDS: SYMTUZA PO SCH (09:34)
[2023-01-31] MEDS ORDERED: ALPRAZolam 0.25 MG TAB PO PRN (10:30)
[2023-02-01] MEDS: NYSTATIN (MOUTH-THROAT) 500,000 UNITS/5 ML SUSP MT SCH ×5 (00:22→21:43)
[2023-02-01] MEDS: ATORVASTATIN 20 MG TAB PO SCH ×2 (00:22→21:44)
[2023-02-01] MEDS: SULFAMETH TRIMETH IV SCH ×4 (00:30→23:53)
[2023-02-01] MEDS: D5W 5% IV SCH ×4 (00:30→23:53)
[2023-02-01] MEDS: HYDROcodone-ACET 5/325MG TAB PO PRN ×3 (01:55→19:48)
[2023-02-01 05:00] VITALS: BP 106/72; PULSE 79; RESP 19; TEMP 98.3; O2SAT 97
[2023-02-01 08:00] VITALS: BP 103/67; PULSE 82; RESP 19; TEMP 97.5; O2SAT 100
[2023-02-01 09:00] VITALS: BP 103/67; PULSE 82; RESP 19; TEMP 97.5; O2SAT 100
[2023-02-01 09:27] LABS: Hematocrit 41.7 % (41.0-53.0); Hemoglobin 13.9 g/dL (13.5-17.5); Mean Corpuscular Hemoglobin 27.9 pg (28.0-32.0); Mean Corpuscular Hgb Conc. 33.5 g/dL (32.0-36.0); Mean Corpuscular Volume 83.3 fL (80.0-100.0); Red Cell Distribution Width 16.8 % (11.8-14.3); White Blood Cell 5.2 10^3/uL (4.4-10.8)
[2023-02-01 09:28] LABS: Band Neutrophils % (manual) 0; Basophils % (manual) 0 (0.0-2.0); Blast Cells 0; Metamyelocytes % 0; Myelocytes % 0; Promyelocytes % 0
[2023-02-01 09:42] LABS: Chloride 95 mmol/L (98-107); Potassium 4.3 mmol/L (3.5-5.1); Sodium 129 mmol/L (136-145)
[2023-02-01 09:43] LABS: Anion Gap 7.6 (5-15); Calcium 8.7 mg/dL (8.5-10.1); Carbon Dioxide 26.4 mmol/L (20-30)
[2023-02-01] MEDS: cefTRIAXone 1GM/50ML D5W 50 ML IV SCH (09:44)
[2023-02-01] MEDS: PANTOPRAZOLE 40 MG TAB PO SCH (09:45)
[2023-02-01] MEDS: SYMTUZA PO SCH (09:45)
[2023-02-01 09:48] LABS: BUN/Creatinine Ratio 17.9 (10.0-20.0); Blood Urea Nitrogen 17 mg/dL (9-23); Glucose 204 mg/dL (74-106)
[2023-02-01 09:58] LABS: Eosinophils % (manual) 1 (0-7); Lymphocytes % (manual) 9 (10.0-50.0); Monocytes % (manual) 5 (0-12); Platelet Estimate Adequate; Reactive Lymphocytes 1
[2023-02-01 17:00] VITALS: BP 107/69; PULSE 72; RESP 18; TEMP 98; O2SAT 92
[2023-02-01 20:00] VITALS: BP 118/73; PULSE 85; RESP 18; TEMP 98.3; O2SAT 95
[2023-02-01 22:00] VITALS: BP 118/73; PULSE 85; RESP 18; TEMP 98.3; O2SAT 95
[2023-02-02] VITALS (7 sets, daily range): BP systolic 103–109; BP diastolic 62–74; PULSE 76–98; RESP 16–19; TEMP 97.5–98.9; O2SAT 91–100
[2023-02-02] MEDS: HYDROcodone-ACET 5/325MG TAB PO PRN ×2 (03:44→15:57)
[2023-02-02] MEDS: NYSTATIN (MOUTH-THROAT) 500,000 UNITS/5 ML SUSP MT SCH ×4 (06:00→21:51)
[2023-02-02] MEDS: D5W 5% IV SCH ×2 (07:57→15:46)
[2023-02-02] MEDS: PANTOPRAZOLE 40 MG TAB PO SCH (07:57)
[2023-02-02] MEDS: SULFAMETH TRIMETH IV SCH ×2 (07:57→15:46)
[2023-02-02] MEDS: cefTRIAXone 1GM/50ML D5W 50 ML IV SCH (09:00)
[2023-02-02] MEDS: SYMTUZA PO SCH (09:28)
[2023-02-02] MEDS: ATORVASTATIN 20 MG TAB PO SCH (21:51)
[2023-02-03] VITALS (7 sets, daily range): BP systolic 85–123; BP diastolic 48–76; PULSE 73–99; RESP 16–20; TEMP 98.1–98.4; O2SAT 90–98
[2023-02-03] MEDS: SULFAMETH TRIMETH IV SCH ×4 (00:26→23:45)
[2023-02-03] MEDS: D5W 5% IV SCH ×4 (00:26→23:45)
[2023-02-03] MEDS: HYDROcodone-ACET 5/325MG TAB PO PRN ×2 (05:22→13:06)
[2023-02-03] MEDS: NYSTATIN (MOUTH-THROAT) 500,000 UNITS/5 ML SUSP MT SCH ×4 (05:22→21:36)
[2023-02-03] MEDS: cefTRIAXone 1GM/50ML D5W 50 ML IV SCH (10:57)
[2023-02-03] MEDS: PANTOPRAZOLE 40 MG TAB PO SCH (10:58)
[2023-02-03] MEDS: SYMTUZA PO SCH (10:58)
[2023-02-03 14:18] LABS: Chloride 98 mmol/L (98-107); Potassium 4.8 mmol/L (3.5-5.1); Sodium 130 mmol/L (136-145)
[2023-02-03 14:19] LABS: Anion Gap 6.7 (5-15); Carbon Dioxide 25.3 mmol/L (20-30)
[2023-02-03 14:20] LABS: Calcium 8.7 mg/dL (8.5-10.1)
[2023-02-03 14:25] LABS: BUN/Creatinine Ratio 21.4 (10.0-20.0); Blood Urea Nitrogen 22 mg/dL (9-23); Glucose 125 mg/dL (74-106)
[2023-02-03 14:40] LABS: Base Excess 5.2 mmol/L (-2.0-2.0)
[2023-02-03] MEDS ORDERED: PRED20TA2 PO (14:45)
[2023-02-03] MEDS ORDERED: BACDST PO ×2 (14:45)
[2023-02-03] MEDS: ATORVASTATIN 20 MG TAB PO SCH (21:35)
[2023-02-04] MEDS: HYDROcodone-ACET 5/325MG TAB PO PRN (04:32)
[2023-02-04 05:00] VITALS: BP 106/67; PULSE 83; RESP 17; TEMP 97.6; O2SAT 100
[2023-02-04] MEDS: NYSTATIN (MOUTH-THROAT) 500,000 UNITS/5 ML SUSP MT SCH ×2 (06:00→12:29)
[2023-02-04 08:00] VITALS: BP 147/93; PULSE 83; RESP 20; TEMP 98; O2SAT 90
[2023-02-04] MEDS: SULFAMETH TRIMETH IV SCH (08:33)
[2023-02-04] MEDS: D5W 5% IV SCH (08:33)
[2023-02-04] MEDS ORDERED: predniSONE 20 MG TAB PO SCH (10:00)
[2023-02-04] MEDS: PANTOPRAZOLE 40 MG TAB PO SCH (10:08)
[2023-02-04] MEDS: cefTRIAXone 1GM/50ML D5W 50 ML IV SCH (10:09)
[2023-02-04] MEDS: SYMTUZA PO SCH (10:09)
[2023-02-04 12:13] VITALS: BP 147/93; PULSE 83; RESP 20; TEMP 98; O2SAT 90
[2023-02-04 13:00] VITALS: BP 114/75; PULSE 85; RESP 20; TEMP 97.6; O2SAT 100
== END 2023-02-04 13:13 | disposition home or self-care (01) | DRG 890 ==
LOC: EDBD 18:39 → ER 18:48 → OVERFLOW 22:45 → TELE-WESTW 01-25 23:06 → WEST WING 01-31 10:10
PROVIDERS: ADMIT Nurse Practitioner; ATTEND Nurse Practitioner Acute Care
PROC: 0B9D8ZX Drainage of Right Middle Lung Lobe, Via Natural or Artificial Opening Endoscopic, Diagnostic (ICD-10-PCS; 2023-01-27)
PROC: 0B9G8ZX Drainage of Left Upper Lung Lobe, Via Natural or Artificial Opening Endoscopic, Diagnostic (ICD-10-PCS; principal; 2023-01-27 11:37)
PROC: 05H933Z Insertion of Infusion Device into Right Brachial Vein, Percutaneous Approach (ICD-10-PCS; 2023-01-29)
PROC: B54MZZA Ultrasonography of Right Upper Extremity Veins, Guidance (ICD-10-PCS; 2023-01-29)
DX: B20 Human immunodeficiency virus [HIV] disease (principal); J96.21 Acute and chronic respiratory failure with hypoxia; A41.9 Sepsis, unspecified organism; E43 Unspecified severe protein-calorie malnutrition; B37.0 Candidal stomatitis; J18.9 Pneumonia, unspecified organism; B59 Pneumocystosis; D70.9 Neutropenia, unspecified; F17.210 Nicotine dependence, cigarettes, uncomplicated; E78.5 Hyperlipidemia, unspecified; E87.1 Hypo-osmolality and hyponatremia; Z60.2 Problems related to living alone; Z20.822 Contact with and (suspected) exposure to COVID-19; F19.10 Other psychoactive substance abuse, uncomplicated; J44.9 Chronic obstructive pulmonary disease, unspecified; J98.11 Atelectasis; Z80.9 Family history of malignant neoplasm, unspecified; Z83.3 Family history of diabetes mellitus; Z91.148 Patient's other noncompliance with medication regimen for other reason; Z88.8 Allergy status to other drugs, medicaments and biological substances; Z68.22 Body mass index [BMI] 22.0-22.9, adult
CPT/HCPCS: 36415; 36600; 71045; 80048; 80053; 81001; 82805; 83605; 84484; 85007; 85025; 85027; 86360; 87040; 87070; 87086; 87205; 87426; 87804; 93005; G0378; J0171; J0696; J2001; J2250; J2405; J2704; J3490